=== PATIENT | female | born 1950 | race Two or more races ===

== ENCOUNTER 2017-02-08 14:09 | Emergency (ER) | payer OTHER, MEDICAID ==
[~2017-02-08] VITALS: Ht 152.4 cm; Wt 61.7 kg
--- NOTE | 2017-02-08 14:25 | NUR ---
PT AMBULATORY TO ER BED 02. PRESENTS W/ BILAT RASH SURROUNDING BOTH EYES X 5 DAYS. NO LOSS OF VISION BUT STATES SOME BLURRING. WAS PRESCRIBE W/ EYE OINTMENT AND ZYRTEC. AWAITING MD RICHARDSON.
--- NOTE | 2017-02-08 15:09 | NUR ---
DR RUFFIN AT BEDSIDE FOR EVAL.
--- NOTE | 2017-02-08 15:45 | NUR ---
MILKER MACHINE AT BEDSIDE FOR BLOOD DRAW.
[2017-02-08 15:51] LABS: BASOPHILS % (AUTO) 0.8 % (0.0-2.0); EOSINOPHILS # (AUTO) 0.3 /CMM (0.0-0.7); EOSINOPHILS % (AUTO) 5.8 % (0.0-6.0); HEMATOCRIT 39 % (33-45); HEMOGLOBIN 13.2 g/dL (11.5-14.8); LYMPHOCYTES # (AUTO) 1.3 /CMM (0.8-4.8); LYMPHOCYTES % (AUTO) 25.8 % (20.0-44.0); MEAN CORPUSCULAR HEMOGLOBIN 30 PG (26.0-33.0); MEAN CORPUSCULAR HGB CONC 34 g/dl (31.0-36.0); MEAN CORPUSCULAR VOLUME 89 fL (82-100); MONOCYTES # (AUTO) 0.5 /CMM (0.1-1.30); MONOCYTES % (AUTO) 10.3 % (2.0-12.0); NEUTROPHILS % (AUTO) 57.3 % (43.0-81.0); PLATELET COUNT (AUTO) 121 /CMM (150-450); RDW COEFFICIENT OF VARIATION 12.4 (11.5-15.0); RED BLOOD CELL COUNT(AUTO) 4.38 MIL/uL (4.0-5.2); WHITE BLOOD COUNT (AUTO) 5.1 K/uL (4.3-11.0)
--- NOTE | 2017-02-08 15:54 | NUR ---
RADIOLOGY AT BEDSIDE FOR CHEST XRAY.
[2017-02-08 16:21] LABS: ALANINE AMINOTRANSFERASE 19 U/L (12-78); ALBUMIN 3.8 g/dL (3.4-5.0); ALKALINE PHOSPHATASE 77 U/L (46-116); ASPARTATE AMINOTRANSFERASE 15 U/L (15-37); BILIRUBIN,DIRECT 0.1 mg/dL (0.0-0.2); BILIRUBIN,TOTAL 0.4 mg/dL (0.2-1.0); CARBON DIOXIDE 27 mmol/L (21-32); CHLORIDE 105 mmol/L (98-107); CREATININE 0.8 mg/dL (0.6-1.3); GLUCOSE 90 mg/dL (74-106); POTASSIUM 3.7 mmol/L (3.5-5.1); SODIUM SERUM 142 mmol/L (136-145); TOTAL PROTEIN, SERUM 7.1 g/dL (6.4-8.2); UREA NITROGEN, BLOOD 25 mg/dL (7-18)
[2017-02-08 16:23] LABS: TROPONIN I < 0.017 ng/mL (0.00-0.056)
[2017-02-08 16:25] LABS: CALCIUM, SERUM 8.8 mg/dL (8.5-10.1)
--- NOTE | 2017-02-08 17:02 | NUR ---
Patient discharged to home in stable condition. Written and verbal after care instructions given. Patient verbalizes understanding of instruction.
[2017-02-08 17:03] VITALS: BP 118/77
== END 2017-02-08 17:04 | disposition home or self-care (01) ==
LOC: ER 14:12
DX: L30.8 Other specified dermatitis (principal); R06.02 Shortness of breath
CPT/HCPCS: 36415; 71010; 80048; 80076; 83880; 84484; 85025; 93005; 99285; A4606; Z7610